=== PATIENT | male | born 1970 | race Caucasian/White ===

== ENCOUNTER 2016-10-24 00:29 | Emergency (ER) | payer OTHER ==
[~2016-10-24] VITALS: Ht 170.2 cm; Wt 61.2 kg
[2016-10-24 00:29] VITALS: BP 146/91; PULSE 104; RESP 18; TEMP 98.1; O2SAT 98
--- NOTE | 2016-10-24 00:29 | NUR ---
Patient to [facility] for evaluation. Side rails up. Report given to Thai TORREZ.
--- NOTE | 2016-10-24 00:30 | NUR ---
Note lorenzo in ED - 10/24/16 at 0145 by KRISTIAN Pt is here for medical clearance. Pt states he cut his L index finger while cutting cabbage. Superficial 2 cm laceration lateral of the nailbed. Will continue to monitor. No other injuries or complaints mentioned/noted. No distress noted.
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
--- NOTE | 2016-10-24 00:30 | NUR ---
Note lorenzo in ED - 10/24/16 at 0144 by KRISTIAN Pt is here for medical clearance. Pt states he cut his R index finger while cutting cabbage. Superficial 2 cm laceration lateral of the nailbed. Will continue to monitor. No other injuries or complaints mentioned/noted. No distress noted.
--- NOTE | 2016-10-24 00:40 | NUR ---
ER Dr. You at bedside examining patient.
[2016-10-24 00:47] VITALS: BP 146/91; PULSE 104; RESP 18; TEMP 98.1; O2SAT 98
--- NOTE | 2016-10-24 00:47 | NUR ---
Patient given written and verbal discharge instructions and verbalizes understanding. ER MD discussed with patient the results and treatment provided. Patient in stable condition. ID arm band removed. Patient educated on pain management and to follow up with PMD. Pain Scale 0/10. Opportunity for questions provided and answered.
== END 2016-10-24 00:47 ==
LOC: SED 00:29
DX: S61.301A Unspecified open wound of left index finger with damage to nail, initial encounter (principal); F17.210 Nicotine dependence, cigarettes, uncomplicated; V89.2XXA Person injured in unspecified motor-vehicle accident, traffic, initial encounter; Y93.89 Activity, other specified; Y99.8 Other external cause status; Y92.89 Other specified places as the place of occurrence of the external cause
CPT/HCPCS: 99283